=== PATIENT | female | born 1980 | race African-American/Black ===

== ENCOUNTER 2020-02-25 20:28 | Emergency (ER) | payer SELFPAY ==
[2020-02-25 20:57] VITALS: BP 131/79
[2020-02-25] MEDS ORDERED: HYDROCODONE/ACETAMINOPHEN 5-325 MG TABLET PO ONE (21:18)
--- NOTE | 2020-02-25 21:18 | ER Document Report ---
ED Medical Screen (RME) - General Chief Complaint: Chest Pain Stated Complaint: CHEST PAIN/HANDS TINGLING/SHORTNESS OF BREATH Time Seen by Provider: 02/25/20 21:13 Primary Care Provider: RICHI LORD MD [Primary Care Provider] - Follow up as needed Mode of Arrival: Wheelchair Information source: Patient Notes: 39-year-old female presented to ED for complaint of chest pain to the middle of the chest to the right. She stated started last night. She states she does have history of lupus and sometimes when she has a lupus flareup she does have chest pain otherwise she has not ever had chest pain. 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 She states she has not smoked in about a year she drinks maybe every 1 or 2 months and does not do any illicit drugs. She is alert oriented respirations regular nonlabored at this time. She is very tearful. I have greeted and performed a rapid initial assessment of this patient. A comprehensive ED assessment and evaluation of the patient, analysis of test results and completion of medical decision making process will be conducted by an additional ED providers. TRAVEL OUTSIDE OF THE [place] IN LAST 30 DAYS: No - Related Data Allergies/Adverse Reactions: banana Allergy (Verified 02/25/20 21:12) shrimp Allergy (Verified 02/25/20 21:12) Physical Exam - Vital signs Vitals: Temp Pulse Resp BP Pulse Ox 99.2 F 80 22 H 131/79 H 99 02/25/20 20:55 02/25/20 20:55 02/25/20 20:55 02/25/20 20:55 02/25/20 20:55 Course - Vital Signs Vital signs: Temp Pulse Resp BP Pulse Ox 99.2 F 80 22 H 131/79 H 99 02/25/20 20:55 02/25/20 20:55 02/25/20 20:55 02/25/20 20:55 02/25/20 20:55 Doctor's Discharge - Discharge Referrals: RICHI LORD MD [Primary Care Provider] - Follow up as needed
[2020-02-25 22:05] LABS: ABSOLUTE BASOPHILS # (AUTO) 0.1 10^3/uL (0.0-0.2); ABSOLUTE LYMPHOCYTES (AUTO) 2.6 10^3/uL (0.5-4.7); ABSOLUTE NEUT (AUTO) 7.6 10^3/uL (1.7-8.2); BASOPHILS % (AUTO) 0.7 % (0-2); EOSINOPHILS % (AUTO) 0.3 % (0-6); HEMATOCRIT 37.3 % (36.0-47.0); HEMOGLOBIN 12.3 g/dL (12.0-15.5); LYMPHOCYTES % (AUTO) 23.1 % (13-45); MEAN CORPUSCULAR HEMOGLOBIN 25.9 pg (27.0-33.4); MEAN CORPUSCULAR HGB CONC 32.9 g/dL (32.0-36.0); MEAN CORPUSCULAR VOLUME 79 fl (80-97); MONOCYTES % (AUTO) 9.2 % (3-13); PLATELET COUNT 360 10^3/uL (150-450); RED BLOOD COUNT 4.74 10^6/uL (3.72-5.28); RED CELL DISTRIBUTION WIDTH 15.3 % (11.5-14.0); SEGMENTED NEUTROPHILS % (AUTO) 66.7 % (42-78); TOTAL CELLS COUNTED % (AUTO) 100 %; WHITE BLOOD COUNT 11.3 10^3/uL (4.0-10.5)
[2020-02-25 22:24] LABS: ALBUMIN 4.8 g/dL (3.5-5.0); ALKALINE PHOSPHATASE 311 U/L (38-126); ANION GAP 8 (5-19); ASPARTATE AMINO TRANSFERASE 65 U/L (14-36); BILIRUBIN,DIRECT 0.4 mg/dL (0.0-0.4); BILIRUBIN,TOTAL 0.4 mg/dL (0.2-1.3); BLOOD UREA NITROGEN 7 mg/dL (7-20); CALCIUM 9.8 mg/dL (8.4-10.2); CARBON DIOXIDE 26 mmol/L (22-30); CHLORIDE 105 mmol/L (98-107); CREATINE KINASE 110 U/L (30-135); GLUCOSE 117 mg/dL (75-110); POTASSIUM 3.4 mmol/L (3.6-5.0); TOTAL PROTEIN 8.1 g/dL (6.3-8.2)
--- NOTE | 2020-02-25 22:33 | RADIOLOGY REPORT (SQ) ---
XR CHEST 2 VIEWS HISTORY: Chest pain. COMPARISON: None. FINDINGS: The heart size is within normal limits. There is no pulmonary vascular congestion. No consolidation, pleural effusion, or pneumothorax is seen. The bony structures are preserved. IMPRESSION: No evidence of acute cardiopulmonary disease.
--- NOTE | 2020-02-26 10:23 | EKG REPORT ---
SEVERITY:- ABNORMAL ECG - SINUS RHYTHM RIGHT ATRIAL ABNORMALITY PROBABLE LEFT VENTRICULAR HYPERTROPHY BORDERLINE T ABNORMALITIES, INFERIOR LEADS : Confirmed by: Ivy Hills MD 26-Feb-2020 10:23:26
== END 2020-02-26 00:55 | disposition left against medical advice (07) ==
LOC: ER 20:28
DX: R07.9 Chest pain, unspecified (principal); Z87.891 Personal history of nicotine dependence; Z53.20 Procedure and treatment not carried out because of patient's decision for unspecified reasons; Z91.018 Allergy to other foods; Z91.013 Allergy to seafood
CPT/HCPCS: 36415; 71046; 80053; 82550; 83690; 84484; 84703; 85025; 93005; 93010; 99281